=== PATIENT | male | born 1940 | race Caucasian/White ===

== ENCOUNTER 2016-11-24 08:50 | Emergency (ER) | payer OTHER ==
[~2016-11-24] VITALS: Ht 172.7 cm; Wt 74.8 kg
--- NOTE | ~2016-11-24 | EKG ---
[place] [address] [address] [facility] [place] [address] ELECTROCARDIOGRAM REPORT Name: VINEET PAYNE ELIS Room [facility]: [id number] Admission: 11/24/16 Attend Phys: Discharge: Date of : 36 Report #: [id number] THIS REPORT FOR: //name// [facility] ED Test Date: 2016-11-24 Test Time: 09:53:05 Pat Name: VINEET PAYNE Department: Room: Gender: Curriculum Facilitator: wily : 1940 Requested By: Mateus Rodriguez Order Number: [id number] MD: Que Jackson Measurements Intervals [place] Rate: 54 P: -77 AL: 357 QRS: -53 QRSD: 98 T: 56 QT: 480 QTc: 455 Interpretive Statements Sinus or ectopic atrial rhythm Prolonged AL interval Inferior infarct, old No previous ECG available for comparison Electronically Signed On 11-24-2016 11:12:39 CDT by Que Jackson [email or web address] <ELECTRONICALLY SIGNED> By: Que Jackson MD 11/24/16 1112 [id number] Que Jackson MD /EPI
[2016-11-24 09:12] LABS: BASOPHILS 0.4 % (0.0-2.0); EOSINOPHILS 0.5 % (0.0-3.0); HEMATOCRIT 50.7 % (42.0-52.0); HEMOGLOBIN 16.9 gm/dL (14.0-18.0); LYMPHOCYTES 14.2 % (24.0-44.0); MCH 30.2 pg (26.0-34.0); MCHC 33.3 g/dL (28.0-37.0); MCV 90.8 fL (80.0-100.0); MONOCYTES 4.4 % (1.0-8.0); PLATELET COUNT 150 thou/uL (150-400); POLYS 80.5 % (36.0-66.0); RBC 5.59 mil/uL (4.50-6.00); RDW 13.3 % (10.5-14.5); WBC 7.5 thou/uL (4.0-11.0)
[2016-11-24 09:18] LABS: MANUAL DIFF NO
[2016-11-24 09:23] LABS: ANION GAP 12 mmol/L (7-16); BUN 26 mg/dL (7-18); CHLORIDE 105 mmol/L (98-107); CO2 22 mmol/L (21-32); CREATININE 1.4 mg/dL (0.7-1.3); GLUCOSE 209 mg/dL (74-106); POTASSIUM 4.4 mmol/L (3.5-5.1); SODIUM 139 mmol/L (136-145)
[2016-11-24 09:30] LABS: ALBUMIN 3.7 g/dL (3.4-5.0); ALKALINE PHOSPHATASE 88 U/L (46-116); SGOT 22 U/L (15-37); SGPT 22 U/L (30-65); TOTAL BILIRUBIN 0.8 mg/dL (<0.1-1.0); TOTAL PROTEIN 7.3 g/dL (6.4-8.2); TROPONIN-I < 0.04 ng/mL (<0.04-0.07)
[2016-11-24 09:31] LABS: INR 1.1; PROTIME 11.2 Seconds (9.3-11.4)
[2016-11-24 12:00] LABS: URINE BILIRUBIN NEGATIVE (Negative); URINE BLOOD TRACE (Negative); URINE COLOR YELLOW; URINE GLUCOSE-RANDOM* 3+ (Negative); URINE KETONES 1+ (Negative); URINE NITRITE NEGATIVE (Negative); URINE PROTEIN (DIPSTICK) 1+ (Negative); URINE UROBILINOGEN 0.2 E.U./dl (0.2-1.0)
[2016-11-24 12:18] LABS: BACTERIA 1-9 Few /HPF (None Seen); CASTS None Seen /LPF (None Seen); CRYSTALS None Seen /LPF (None Seen); SQUAMOUS 0-3 Few /LPF (0-3); URINE WBC 0-5 Rare /HPF (0-5)
[2016-11-24 12:19] LABS: URINE RBC 0-2 Rare /HPF (0-2)
[2016-11-24] MEDS ORDERED: REGLAN 10 MG TA10 MG PO (13:00)
[2016-11-24 13:22] VITALS: BP 135/79
== END 2016-11-24 13:25 | disposition home or self-care (01) ==
LOC: ER 08:50
PROVIDERS: Physician Assistant
DX: I95.1 Orthostatic hypotension (principal); R42 Dizziness and giddiness; R11.2 Nausea with vomiting, unspecified; Z95.1 Presence of aortocoronary bypass graft; I10 Essential (primary) hypertension; E11.9 Type 2 diabetes mellitus without complications; F10.99 Alcohol use, unspecified with unspecified alcohol-induced disorder